=== PATIENT | male | born 1970 | race African-American/Black ===

== ENCOUNTER 2017-04-14 10:37 | Emergency (ER) | payer MEDICAID ==
[~2017-04-14] VITALS: Ht 167.6 cm; Wt 68.0 kg
[2017-04-14] MEDS ORDERED: KETOROLAC 60MG/2ML VIAL IM ONE (14:30)
[2017-04-14] MEDS ORDERED: BACITRACIN ZINC OINT UDPKT TOP ONE (15:30)
[2017-04-14] MEDS ORDERED: LIDOCAINE HCL 1%/EPI 1:200,000 30 ML VIAL MC ONE (15:30)
[2017-04-14] MEDS ORDERED: TETANUS, DIPHTHERIA, PERTUSSIS VAC/PF 0.5ML (>7YR OLD) IM ONE (15:30)
[2017-04-14] MEDS ORDERED: HYDROCODONE/ACETAMINOPHEN 5/325MG TABLET PO ONE (17:15)
[2017-04-14 18:05] VITALS: BP 127/75
== END 2017-04-14 18:50 | disposition home or self-care (01) ==
LOC: ER 10:49
DX: S01.81XA Laceration without foreign body of other part of head, initial encounter (principal); R51 Headache; S02.40FA Zygomatic fracture, left side, initial encounter for closed fracture; Y00.XXXA Assault by blunt object, initial encounter; Y93.01 Activity, walking, marching and hiking; Y92.480 Sidewalk as the place of occurrence of the external cause; I10 Essential (primary) hypertension; J45.909 Unspecified asthma, uncomplicated; Z23 Encounter for immunization
CPT/HCPCS: 12002; 70450; 70486; 90471; 90715; 96372; 99284; J1885; Z7610